=== PATIENT | female | born 1955 | race Caucasian/White ===

== ENCOUNTER 2017-09-03 09:44 | Outpatient (CLI) | payer OTHER ==
[~2017-09-03 09:44] MED LIST: FLUCONAZOLE100 MG PO; Hematron LIQ. PO; IMODIUM PO; INTESTINEX1 CA1 PO; INTESTINEX680 MG PO; Neurin-Sl Tablet Sl SL; OXYC1TAB9 PO; PANTOPRAZOLE SO40 MG PO; PERCOCET 5/3251 TAB PO; PYRIDOXINE HCL100 MG PO; SUCRALFATE1 GM/10 ML PO; SULFAMETHOXAZOL1 TA5; TOPROL XL25 M1 PO
== END 2017-09-03 09:57 | disposition home or self-care (01) ==
LOC: LAB 09:44
DX: R14.0 Abdominal distension (gaseous) (principal); R19.4 Change in bowel habit; K64.8 Other hemorrhoids; K59.09 Other constipation; C20 Malignant neoplasm of rectum

== ENCOUNTER 2017-09-11 05:41 | Day surgery (SDC) | payer OTHER | END 2017-09-11 11:20 | disposition home or self-care (01) | LOC: AMB-ENDOS 05:41 | DX: K57.30 Diverticulosis of large intestine without perforation or abscess without bleeding (principal); D12.2 Benign neoplasm of ascending colon; Z85.048 Personal history of other malignant neoplasm of rectum, rectosigmoid junction, and anus ==

== ENCOUNTER 2018-09-19 11:57 | Outpatient (CLI) | payer OTHER | END 2018-09-19 15:00 | disposition home or self-care (01) | LOC: LAB 11:57 | DX: R14.0 Abdominal distension (gaseous) (principal); R19.4 Change in bowel habit; K64.8 Other hemorrhoids; K59.09 Other constipation; C20 Malignant neoplasm of rectum ==

== ENCOUNTER 2018-10-01 08:50 | Day surgery (SDC) | payer OTHER | END 2018-10-01 14:35 | disposition home or self-care (01) | LOC: AMB-ENDOS 08:50 | DX: D12.2 Benign neoplasm of ascending colon (principal) ==